=== PATIENT | male | born 1960 | race Caucasian/White ===

== ENCOUNTER 2021-02-24 16:40 | Observation (INO) | payer OTHER, SELFPAY ==
[2021-02-24] VITALS (16 sets, daily range): BP systolic 117–142; BP diastolic 65–126; PULSE 64–85; RESP 16–24; TEMP 36.4–36.7; O2SAT 88–98; BMI 45.3
--- NOTE | ~2021-02-24 | XR_ITS ---
EXAMINATION: XR chest 1V portable DATE: 02/24/2021 17:36 INDICATION: Chest pain. Indigestion. TECHNIQUE: frontal view of the chest was obtained. COMPARISON: None FINDINGS: Pulmonary vascular congestion. Opacity between the apex of the heart and the left costophrenic angle which could represent atelectasis, small pericardial fat pad, small pleural effusion or less likely p neumonia. Blunting at the right costophrenic angle suggesting small right pleural effusion. No pneumo thorax. The cardiomediastinal silhouette is within normal limits for AP technique. Median sternotomy wires, ostial markers and mediastinal surgical clips consistent with prior coronary artery bypass gra fting. IMPRESSION: 1. Pulmonary vascular congestion without vielka pulmonary edema. 2. Opacities at the costophrenic angle suggesting on the right consistent with small right pleural ef fusion and on the left small pleural effusion, left paracardial fat pad, lingular atelectasis versus less likely pneumonia or some combination thereof. Reviewed, dictated and finalized at location A. IMPRESSION: 1. Pulmonary vascular congestion without vielka pulmonary edema. 2. Opacities at the costophrenic angle suggesting on the right consistent with small right pleural effusion and on the left small pleural effusion, left parac ardial fat pad, lingular atelectasis versus less likely pneumonia or some combi [place] thereof.
--- NOTE | 2021-02-24 16:44 | ECG_ITS ---
Measurements Intervals [place] Rate: 83 P: 50 NV: 168 QRS: -5 QRSD: 95 T: 61 QT: 382 QTc: 449 Interpretive Statements SINUS RHYTHM VENTRICULAR PREMATURE COMPLEX BORDERLINE ST-T WAVE ABNORMALITY- ANTERIOR LEADS BASELINE ARTIFACT- I, V1-V2 BORDERLINE ECG Electronically Signed On 02-25-2021 7:00:59 CDT by Yefri Altamirano D.O.
[2021-02-24 17:10] LABS: Basophils Absolute Auto 0.1 K/mm3 (0.0-0.1); Basophils Percent Auto 0.9 % (0.2-1.2); Eosinophils Absolute Auto 0.4 K/mm3 (0-0.3); Hematocrit 46.5 % (42.0-52.0); Hemoglobin 14.8 g/dL (14.0-18.0); Immature Granulocyte Absolute 0.05 K/mm3 (0.00-0.031); Immature Granulocyte Percent A 0.6 % (0-0.5); Lymphocytes Absolute Auto 1.04 K/mm3 (0.9-3.2); Lymphocytes Percent Auto 11.8 % (18.3-44.2); Mean Corpuscular HGB Conc 31.8 g/dl (32-36); Mean Corpuscular Hemoglobin 27.7 pg (26-34); Mean Corpuscular Volume 86.9 fl (80-100); Mean Platelet Volume 10.2 fl (7.4-10.4); Monocytes Absolute Auto 0.9 K/mm3 (0.1-0.6); Monocytes Percent Auto 9.9 % (2.6-8.5); Neutrophils Absolute Auto 6.4 K/mm3 (1.3-6.7); Neutrophils Percent Auto 72.8 % (45.5-73.1); Platelet Count Result 310 k/mm3 (150-375); Red Blood Count 5.35 M/mm3 (4.6-6.20); Red Cell Distribution Width 13.6 % (11.5-14.5); White Blood Count 8.8 K/mm3 (4.5-10.0)
[2021-02-24 17:20] LABS: Alanine Aminotransferase 21 U/L (4-50); Albumin Level 3.8 g/dL (3.5-5.1); Alkaline Phosphatase 76 U/L (38-126); Anion Gap 7 mmol/L (8-16); Aspartate Amino Transferase 42 U/L (17-59); Bilirubin,Total 0.7 mg/dL (0.2-1.3); Blood Urea Nitrogen 10 mg/dL (9-20); Calcium 9.9 mg/dL (8.4-10.2); Carbon Dioxide 32 mmol/L (22-30); Chloride 100 mmol/L (98-107); Estimated CRCL calculation 78 ml/min; Estimated Glomerular Filt Rate > 60; Glucose 110 mg/dL (75-110); Potassium 3.2 mmol/L (3.4-5.0); Sodium 139 mmol/L (137-145)
[2021-02-24 17:32] LABS: NT Pro B Type Natriuretic Pept 318 pg/mL (5-100); Troponin I < 0.012 ng/mL (0.000-0.034)
[2021-02-24] MEDS: SODIUM CHLORIDE 0.9% IV 1,000 ML 150 ML IV CONT (17:39)
--- NOTE | 2021-02-24 18:09 | ED.CHESTPAIN ---
HPI - Chest Pain General Chief Complaint: Chest Pain Stated Complaint: CP Time Seen by Provider: 02/24/21 16:43 Source: patient Mode of arrival: EMS Limitations: no limitations History of Present Illness HPI narrative: 60-year-old with a history of hypertension, quadruple bypass Je[place] 21 , GERD here with complaints of epigastric and left-sided chest pain started few days ago. patient states his pain was worse today. Had to call 911. Upon EMS arrival pain was 8 out of 10 he was given nitro which brought his pain down to 2 out of 10. He presently denies any shortness of breath however complains of nausea. He states that he had his CABG that in [facility] Home Medications Medication Instructions Recorded Confirmed apixaban [Eliquis] 5 mg PO BID 02/24/21 aspirin [Adult Aspirin] 81 mg PO DAILY 02/24/21 atorvastatin 20 mg PO DAILY 02/24/21 cariprazine [Vraylar] 6 mg PO DAILY 02/24/21 furosemide 40 mg PO DAILY 02/24/21 levothyroxine 50 mcg PO DAILY 02/24/21 metoprolol tartrate 50 mg PO Q12H 02/24/21 omeprazole 40 mg PO DAILY 02/24/21 spironolactone [Aldactone] 25 mg PO DAILY 02/24/21 02/24/21 tamsulosin [Flomax] 0.4 mg PO DAILY 02/24/21 02/24/21 Allergies Allergy/AdvReac Type Severity Reaction Status Date / Time No Known Allergies Allergy Verified 02/24/21 16:51 Review of Systems Review of Systems: All systems reviewed & are unremarkable except as noted in HPI and below Constitutional: Constitutional: Reports no additional constitutional complaints Eyes: Eyes: Reports no additional eye complaints ENT: Reports system reviewed and no additional complaints, except as documented Cardiovascular: Cardiovascular: Reports as per HPI Respiratory: Respiratory: Reports no additional respiratory complaints Gastrointestinal: Gastrointestinal: Reports nausea Musculoskeletal: Musculoskeletal: Reports no additional musculoskeletal complaints Integumentary/Breasts: Skin/Breast: Reports system reviewed and no additional complaints, except as docu Neurologic: Reports system reviewed and no additional complaints, except as documented Endocrine: Endocrine: Reports no additional endocrine complaints Exam Narrative: Exam Narrative: GENERAL: Well-appearing, well-nourished, and in no acute distress. HEAD: Normocephalic, atraumatic. EYES: PERRLA and EOMI NECK: Supple. CHEST: Clear to auscultation. No respiratory distress. HEART: Regular rate and rhythm. No murmur heard. Normal peripheral pulses. ABDOMEN: Soft, nontender, nondistended, normal active bowel sounds. EXTREMITIES: Normal range of motion. No edema. SKIN: Warm, dry, no rash. NEURO: No focal deficits. Alert and oriented x3. PSYCH: Normal mood and affect. Course Course Emergency Course: Patient arrival to the ER patient is almost pain-free. He was given aspirin and nitro on route to the hospital. He states his nausea is much improved. I discussed lab, EKG and chest x-ray findings with the patient will admit him to the hospital. I discussed with the hospitalist as well as Dr. Villegas who will see the patient in consult. Vital Signs Vital signs: Vital Signs Temperature 36.7 C 02/24/21 16:41 Pulse Rate 84 02/24/21 16:41 Respiratory Rate 16 02/24/21 16:41 Blood Pressure 119/84 02/24/21 16:41 Pulse Oximetry 98 02/24/21 16:41 Temperature 36.7 C 02/24/21 16:41 Pulse Rate 68 02/24/21 17:45 Respiratory Rate 22 H 02/24/21 17:45 Blood Pressure 121/65 02/24/21 17:45 Pulse Oximetry 93 02/24/21 17:45 MDM - Chest Pain MDM Narrative Medical decision making narrative: With a history of coronary artery disease, hypertension and with complaints of chest pain will do a cardiac work-up. Complaining of nausea I will give him Zofran. However since he is out of town I would like to admit him to the hospital for cardiac evaluation. Differential Diagnosis Differential diagnosis: Likely unstable angina pectoris, atypical chest p
--- NOTE | 2021-02-24 21:06 | PC.NURSE ---
This patient, Rolo Vilchis, was admitted to IMU Room 232-01 on 02/24/21 at 2030. Patient/family oriented to hospital policies and general routines including ID bracelet, bed and alarms, visiting hours, pain management, procedures, bathroom and other care routines, personal items, smoking policy, room service/diet, and visiting hours. Information on how to activate the Rapid Response Team has been discussed. Patient/Family are encouraged to report perceived risks to care and to ask questions if they do not understand what they are told or what they should do.
[2021-02-24 22:27] LABS: Troponin I < 0.012 ng/mL (0.000-0.034)
[2021-02-25] VITALS: BP 110/61; PULSE 58; PULSE 67; RESP 20; TEMP 36.9; O2SAT 94
--- NOTE | 2021-02-25 00:43 | PM.IMHP ---
H&P: HPI History of Present Illness Date/Time: 02/25/21 00:43 Chief Complaint: chest pain Narrative: H&P/discharge summary/short-stay summary 60-year-old male with past medical history of hypertension, hypothyroidism, GERD, and coronary artery disease status post 4 vessel CABG October 2020 who presented to the ER with chest pain. The patient reports that the pain is more in the epigastric region. The pain radiates up into his throat. It usually occurs after eating and resolves after 15-20 minutes. He reports that he does have history of coronary artery disease but he was diagnosed after he was having symptoms of dyspnea. He has never had actual symptoms of chest pain and was never diagnosed with an MRI. He does have a history of GERD and heartburn. He has been out of his omeprazole for a couple of weeks. He reports that he has some dry heaves associated with the pain HEENT. He will occasionally get hot flushed with a little bit of sweating with the pain. He denies any orthopnea, paroxysmal nocturnal dyspnea or dyspnea on exertion. He does have some chronic lower extremity edema that is unchanged from baseline. He has not had any palpitations. Review of Systems Review of Systems: Narrative: 12 systems were reviewed with pertinent positives and negatives per HPI. Except as documented in the HPI, all other systems were reviewed and are negative. [facility] Past Medical History Medical History (Updated 02/25/21 @ 05:52 by Yovana Garg DO) Anxiety Bipolar disorder CAD (coronary artery disease) Essential hypertension GERD (gastroesophageal reflux disease) Hypothyroidism Surgical History Surgical History (Updated 02/25/21 @ 00:45 by Yovana Garg DO) Hx of tonsillectomy S/P CABG (coronary artery bypass graft) (10/2020) Family History Family History (Updated 02/25/21 @ 05:47 by Yovana Garg DO) Sibling Acute myocardial infarction Congestive heart failure Sibling Cerebrovascular accident Sibling Diabetes mellitus Son Cancer Father Lung cancer in his 70s. Mother Heart disease in her 70s Social History Social History (Updated 02/25/21 @ 05:50 by Yovana Garg DO) Social History: The patient is . He lives in [place] in [facility] [place] [employer] [place] [employer]. code status: Full code Healthcare power of patent attorney: Claudia () Smoking packs per day: 3 Smoking cigarettes per day: 60.0 Years smoked: 30 Smoking pack-years: 90.00 Smoking status: Former smoker Tobacco type: cigarettes Alcohol intake: current Drinks per week: 1 Substance use: never Spiritual care concerns: No Comments He has a total of 18 siblings. He only has 5 siblings left alive. He is the youngest of all the siblings. Meds Home Medications and Allergies Home Medications Medication Instructions Recorded Confirmed Type apixaban [Eliquis] 5 mg PO BID 02/24/21 02/24/21 History aspirin [Adult Aspirin] 81 mg PO DAILY 02/24/21 02/24/21 History atorvastatin 20 mg PO DAILY 02/24/21 02/24/21 History cariprazine [Vraylar] 6 mg PO DAILY 02/24/21 02/24/21 History furosemide 40 mg PO DAILY 02/24/21 02/24/21 History levothyroxine 50 mcg PO DAILY 02/24/21 02/24/21 History metoprolol tartrate 50 mg PO Q12H 02/24/21 02/24/21 History omeprazole 40 mg PO DAILY 02/24/21 02/24/21 History spironolactone [Aldactone] 25 mg PO DAILY 02/24/21 02/24/21 History tamsulosin [Flomax] 0.4 mg PO DAILY 02/24/21 02/24/21 History Allergies Allergy/AdvReac Type Severity Reaction Status Date / Time No Known Allergies Allergy Verified 02/24/21 16:51 Vital Signs Vital Signs - 24 hr 02/24/21 16:41 02/24/21 16:49 02/24/21 16:50 Temperature 98.1 F Pulse Rate 84 81 79 Respiratory Rate 16 23 H Blood Pressure 119/84 Pulse Oximetry 98 02/24/21 17:00 02/24/21 17:02 02/24/21 17:17 Temperature Pulse Rate 80 80 74 Respiratory Rate 23 H 23 H 20 Blood Pres
[2021-02-25] MEDS: SODIUM CHLORIDE 0.9% IV 1,000 ML 125 ML IV CONT (00:51)
[2021-02-25 02:00] VITALS: PULSE 57
[2021-02-25 02:22] LABS: Troponin I < 0.012 ng/mL (0.000-0.034)
[2021-02-25 04:00] VITALS: BP 118/66; PULSE 61; PULSE 65; RESP 20; TEMP 37; O2SAT 92
[2021-02-25 06:00] VITALS: PULSE 50
[2021-02-25 08:00] VITALS: PULSE 61
[2021-02-25] MEDS: TAMSULOSIN HCL 0.4 MG CAPSULE PO (08:15)
[2021-02-25] MEDS: SPIRONOLACTONE 25 MG TABLET PO (08:15)
[2021-02-25] MEDS: PANTOPRAZOLE 40 MG TABLET PO (08:15)
[2021-02-25] MEDS: ATORVASTATIN 20 MG TABLET PO (08:15)
[2021-02-25] MEDS: LEVOTHYROXINE SODIUM 50 MCG TABLET PO (08:15)
[2021-02-25] MEDS: APIXABAN 5 MG TABLET PO (08:15)
[2021-02-25] MEDS: METOPROLOL TARTRATE 50 MG TAB PO (08:15)
[2021-02-25] MEDS: FUROSEMIDE 40 MG TABLET PO (08:15)
[2021-02-25] MEDS: ASPIRIN 81 MG CHEWABLE TABLET PO (08:16)
== END 2021-02-25 08:31 | disposition home or self-care (01) ==
LOC: ANHED 18:20 → ANHIMU 18:47
PROVIDERS: Admitting Provider Internal Medicine; Emergency Provider Family Medicine; Visit Provider Internal Medicine
DX: R07.9 Chest pain, unspecified (principal); K21.9 Gastro-esophageal reflux disease without esophagitis; I10 Essential (primary) hypertension; I25.10 Atherosclerotic heart disease of native coronary artery without angina pectoris; E03.9 Hypothyroidism, unspecified; F31.9 Bipolar disorder, unspecified; F41.9 Anxiety disorder, unspecified; Z95.1 Presence of aortocoronary bypass graft; Z79.01 Long term (current) use of anticoagulants; Z79.82 Long term (current) use of aspirin; Z87.891 Personal history of nicotine dependence
CPT/HCPCS: 36415; 71045; 80053; 83880; 84484; 85025; 93005; 96360; 96361; 99285; A9270; G0378; J7030